=== PATIENT | male | born 1965 | race Caucasian/White ===

== ENCOUNTER 2024-01-07 19:03 | Emergency (ER) | payer OTHER, SELFPAY ==
[2024-01-07 19:05] VITALS: BP 120/75
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
[2024-01-07 21:02] VITALS: BP 110/83
== END 2024-01-07 21:03 | disposition home or self-care (01) ==
LOC: EMR 19:03
PROVIDERS: EMERGENCY PHYSICIAN Student in an Organized Health Care Education/Training Program; FAMILY PHYSICIAN Family Medicine
DX: S60.221A Contusion of right hand, initial encounter (principal); V49.40XA Driver injured in collision with unspecified motor vehicles in traffic accident, initial encounter; W22.10XA Striking against or struck by unspecified automobile airbag, initial encounter; Y92.410 Unspecified street and highway as the place of occurrence of the external cause; I10 Essential (primary) hypertension; K21.9 Gastro-esophageal reflux disease without esophagitis
CPT/HCPCS: 99283; 73130

== ENCOUNTER → 2024-07-07 07:24 | Outpatient (REF) | payer OTHER, SELFPAY | LOC: HWRAD 07:24 | PROVIDERS: ATTENDING PHYSICIAN Internal Medicine Gastroenterology; FAMILY PHYSICIAN Family Medicine | DX: R10.13 Epigastric pain (principal) | CPT/HCPCS: 76700 ==

== ENCOUNTER 2024-08-02 06:21 | Day surgery (SDC) | payer OTHER, SELFPAY | END 2024-08-02 14:47 | disposition home or self-care (01) | LOC: GI 06:21 | PROVIDERS: ATTENDING PHYSICIAN Internal Medicine Gastroenterology | DX: Z12.11 Encounter for screening for malignant neoplasm of colon (principal); K64.8 Other hemorrhoids; Z80.0 Family history of malignant neoplasm of digestive organs | CPT/HCPCS: G0105 ==

== ENCOUNTER → 2025-05-30 14:00 | Outpatient (REF) | payer OTHER, SELFPAY | LOC: EMG 14:00 | PROVIDERS: ATTENDING PHYSICIAN Orthopaedic Surgery Hand Surgery; FAMILY PHYSICIAN Family Medicine | DX: M79.642 Pain in left hand (principal); M79.641 Pain in right hand; R20.0 Anesthesia of skin | CPT/HCPCS: 95907 ==